=== PATIENT | female | born 1995 | race Two or more races ===

== ENCOUNTER 2018-07-13 08:10 | Emergency (ER) | payer MEDICAID, OTHER ==
--- NOTE | 2018-07-13 08:11 | ER Report ---
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 Initial EF 20%. Had second child since, and has had normal EF since, now 65%. Has intermittent chest pain often, but also contributes her CP and SOB to smoking. Was seen in the [facility] ED in late March for chest pain. Was supposed to have routine stress test and echo for follow up from her post cardiomyopathy, but hasn't followed up. Chest pain and mild SOB started while walking up the stairs at 0600 this morning. Still with some residual chest discomfort, but again thinks it may be from her cigarette smoking. Chest pain free during my interview with her. No cough, no fever/chills. Pt. states, "I just came to get an EKG to make sure I am okay." Allergies: Coded Allergies: azithromycin (Verified Allergy, Unknown, 07/13/18) Home Meds Active Scripts Albuterol Sulfate (VENTOLIN HFA) 18 Gm Inh, 2 PUFF INH Q4-6H for 10 Days, INH Prov:AVELINO MAY MD 07/13/18 Reported Medications Albuterol Sulfate (VENTOLIN HFA) 18 Gm Inh, 1-2 PUFF INH 3-4XD, INH 07/13/18 Reviewed Nurses Notes: Yes Old Medical Records Reviewed: Yes Hx Smoking: Yes Smoking Status: Current: Every Day Smoker Exposure to Second Hand Smoke?: Yes Hx Substance Use Disorder: No Hx Alcohol Use: No Constitutional Vital Sign - Last 24 Hours 07/13/18 07/13/18 07/13/18 07/13/18 08:13 08:17 08:30 08:45 Temp 98.4 Pulse 90 85 79 Resp 17 19 17 B/P (MAP) 138/98 138/98 (111) 129/89 (102) Pulse Ox 94 92 92 O2 Delivery Room Air 07/13/18 07/13/18 07/13/18 07/13/18 09:15 09:25 09:25 09:30 Pulse 80 70 84 Resp 19 16 15 B/P (MAP) 116/72 (87) Pulse Ox 93 95 94 O2 Delivery Room Air 07/13/18 07/13/18 07/13/18 07/13/18 09:31 09:45 10:00 10:15 Pulse 84 85 83 Resp 16 7 B/P (MAP) 111/72 (85) 110/81 (91) Pulse Ox 92 87 91 Physical Exam General Appearance: The patient is alert, has no immediate need for airway protection and no current signs of toxicity. Eyes: Pupils equal and round no injection. Respiratory: Chest is non tender, lungs are clear to auscultation. Cardiac: regular rate and rhythm Gastrointestinal: Abdomen is soft and non tender, no masses, bowel sounds normal. Extremities have full range of motion and are non tender. Skin: No rashes or lesions. DIFFERENTIAL DIAGNOSIS: After history and physical exam differential diagnosis was considered for chest pain including but not limited to myocardial ischemia, pericarditis pulmonary embolus, chest wall pain, pleural inflammation and pulmonary infectious causes. Medical Decision Making ED Course/Re-evaluation ED Course EKG same as March 2018. Last echo in 2015 and shows EF of 65%. CXR normal with no enlarged cardiac eden. Lungs with scant wheezing on exam, so given duoneb. She doesn't know whether or not it helped.I do not think this is cardiac chest pain. She has been essentially cleared from her post- cardiomyopathy with no ongoing issues. No labs needed. Not c/w PE. She will follow up this week with her draw tender in [facility]. Decision to Disposition Date: July 13, 2018 Decision to Disposition Time: 10:10 Depart Departure Latest Vital Signs Vital Signs Date Time Temp Pulse Resp B/P (MAP) Pulse Ox O2 Delivery O2 Flow Rate FiO2 07/13/18 10:15 83 110/81 (91) 91 07/13/18 09:45 7 07/13/18 09:25 Room Air 07/13/18 08:13 98.4 Impression: Primary Impression: Shortness of breath Condition: Improved Disposition: HOME OR SELF-CARE New Scripts Albuterol Sulfate (VENTOLIN HFA) 18 Gm Inh 2 PUFF INH Q4-6H for 10 Days, INH Prov: AVELINO MAY MD 07/13/18 Patient Instructions: Chest Pain (ED) Additional Instructions: FOLLOW UP WITH YOUR YARD SUPERVISOR RECOMMENDED PREVIOUSLY AVELINO MAY MD July 13, 2018 08:11
[2018-07-13] MEDS ORDERED: ALB18R INH ×2 (08:17→10:12)
--- NOTE | 2018-07-13 08:38 | EKG ---
[place] [facility] [place] NAME: SONJA WOODSON : [id number] MR: [id number] V: [id number] EXAM DATE: ORDERING PHYSICIAN: AVELINO MAY TECHNOLOGIST: DONALD Test Reason : CHEST PAIN Blood Pressure : / mmHG Vent. Rate : 083 BPM Atrial Rate : 083 BPM P-R Int : 160 ms QRS Dur : 098 ms QT Int : 390 ms P-R-T Axes : 057 082 064 degrees QTc Int : 458 ms Sinus arrhythmia Nonspecific T wave flattening No previous ECGs available Confirmed by BRIDGETT DEL RIO ([id number] on 07/13/2018 3:01:35 PM Referred By: LALO Confirmed By:BRIDGETT DEL RIO
[2018-07-13] MEDS ORDERED: ALBUTEROL/IPRATROPIUM 3 ML NEB NEB ONE (09:10)
--- NOTE | 2018-07-13 09:15 | RADIOLOGY IMAGING REPORT ---
FACILITY: [facility] PATIENT NAME: Vanessa Kay : 1995 MR: [id number] V: [id number] EXAM DATE: ORDERING PHYSICIAN: AVELINO MAY TECHNOLOGIST: [place] [facility] [place]: Vanessa Kay : 1995 Visit/Account:[id number] Date of Sevice: 07/13/2018 2 VIEWS CHEST INDICATION: chest pain, sob COMPARISON: None available FINDINGS: Heart size within normal limits. There is no focal infiltrate or lobar consolidation. There is no pneumothorax or pleural effusion. IMPRESSION: 1. No acute cardiopulmonary process. Report Dictated By: Brayan Berkowitz MD at 07/13/2018 9:11 AM Report E-Signed By: Brayan Berkowitz MD at 07/13/2018 9:11 AM WSN:[id number]
[2018-07-13 10:15] VITALS: BP 110/81
== END 2018-07-13 10:15 | disposition home or self-care (01) ==
LOC: ER 08:18
DX: R06.02 Shortness of breath (principal); R07.9 Chest pain, unspecified; F17.210 Nicotine dependence, cigarettes, uncomplicated
CPT/HCPCS: 71046; 93005; 94640; 99284; J7620